=== PATIENT | female | born 1960 | race Caucasian/White ===

== ENCOUNTER → 2018-08-16 10:27 | Outpatient (CLI) | payer OTHER, SELFPAY ==
--- NOTE | 2018-08-16 | DI.MG.S_ITS ---
BILATERAL DIGITAL DIAGNOSTIC MAMMOGRAM 3D/2D: 08/16/2018 CLINICAL: Patient returns for 6 month follow up of right breast, due for bilateral exam. Comparison is made to exams dated: 04/24/2017 mammogram, 10/22/2016 mammogram, and 10/08/2016 mammogram - [facility]. The tissue of both breasts is heterogeneously dense. This may lower the sensitivity of mammography. There are a grouped fine punctate calcifications in the left breast at 6 o'clock middle depth. These are not significantly changed compared to prior studies. No other significant masses, calcifications, or other findings are seen in either breast. IMPRESSION: PROBABLY BENIGN The grouped fine punctate calcifications in the left breast are probably benign. A follow-up mammogram in 6 months is recommended. A follow-up mammogram in 6 months is recommended to demonstrate stability for greater than 2 years. This exam was interpreted at Station ID: [id number]. NOTE: For mammograms, a report in lay terms will be sent to the patient. Approximately 15% of breast malignancies will not be visualized mammographically. In the management of a palpable breast mass, a negative mammogram must not discourage biopsy of a clinically suspicious lesion. Electronically Signed By: Florenitno Holman M.D. [email or web address]/:08/16/2018 11:22:59 copy to: Rafy AQUINO MD letter sent: Followup Recommended ACR BI-RADS Category 3: Probably benign 3343F
== END ==
PROVIDERS: Family Provider Family Medicine; PCP Family Medicine
DX: R92.1 Mammographic calcification found on diagnostic imaging of breast (principal)
CPT/HCPCS: 77066; G0279

== ENCOUNTER → 2018-10-16 12:43 | Outpatient (CLI) | payer OTHER, SELFPAY ==
--- NOTE | 2018-10-16 12:46 | DI.RAD.S_ITS ---
PROCEDURE: XR ANKLE RT MIN 3V INDICATIONS: fell ankle went one way and leg different way TECHNIQUE: 3 views of the ankle were acquired. COMPARISON: None. FINDINGS: Bones: Moderately displaced distal fibular fracture. Soft tissues: No tibiotalar joint effusion. Achilles tendon appears normal. IMPRESSION: Distal fibular fracture. Dictated by: Portillo Mane M.D. on 10/16/2018 at 13:15 Approved by: Portillo Mane M.D. on 10/16/2018 at 13:15
--- NOTE | 2018-10-16 12:46 | DI.RAD.S_ITS ---
PROCEDURE: XR TIBIA FUBULA RT 2V INDICATIONS: fell-ankle went one way and leg went other way TECHNIQUE: 2 views of the tibia and fibula were acquired. COMPARISON: None. FINDINGS: Bones: Moderately displaced distal fibular fracture. Soft tissues: No suspicious soft tissue calcifications or masses. IMPRESSION: Distal fibular fracture. Dictated by: Portillo Mane M.D. on 10/16/2018 at 13:15 Approved by: Portillo Mane M.D. on 10/16/2018 at 13:15
== END ==
PROVIDERS: Family Provider Family Medicine; PCP Family Medicine; Visit Provider Physician Assistant
DX: S82.831A Other fracture of upper and lower end of right fibula, initial encounter for closed fracture (principal); M25.571 Pain in right ankle and joints of right foot; W19.XXXA Unspecified fall, initial encounter
CPT/HCPCS: 73590; 73610

== ENCOUNTER 2018-10-18 14:29 | Day surgery (SDC) | payer OTHER, SELFPAY ==
[2018-10-18] VITALS (21 sets, daily range): BP systolic 137–184; BP diastolic 82–115; PULSE 73–92; RESP 9–16; TEMP 36–36.8; O2SAT 92–100; BMI 26.6
--- NOTE | 2018-10-18 | DI.RAD.S_ITS ---
PROCEDURE: XR ANKLE RT MIN 3V INDICATIONS: ORIF RIGHT ANKLE TECHNIQUE: 3 intraoperative fluoroscopic views of the ankle were acquired. COMPARISON: [facility], CR, XR ANKLE RT MIN 3V, 10/16/2018, 13:06. FINDINGS: Intraoperative fluoroscopic images of right ankle shows internal fixation of distal fibular and lateral malleolus. Ankle alignment is anatomic. IMPRESSION: Fluoroscopy guidance was provided intraoperatively for ORIF of distal fibular shaft/lateral malleolus. Dictated by: Ean Kline M.D. on 10/18/2018 at 19:14 Approved by: Ean Kline M.D. on 10/18/2018 at 19:15
[2018-10-18 14:53] LABS: Add Manual Diff / Slide Review NO; Basophils Absolute Auto 100 /uL (0-100); Basophils Percent Auto 1.3 % (0-2); Eosinophils Absolute Auto 300 /uL (0-450); Eosinophils Percent Auto 5.9 % (2-4); Hematocrit 36.8 % (36-46); Hemoglobin 12.2 g/dL (12.0-16.0); Lymphocytes Absolute Auto 1400 /uL (1100-4500); Lymphocytes Percent Auto 26.8 % (25-40); Mean Corpuscular HGB Conc 33.2 % (30-36); Mean Corpuscular Hemoglobin 32.4 PG (26-34); Mean Corpuscular Volume 97.6 fL (80-100); Monocytes Absolute Auto 700 /uL (0-900); Monocytes Percent Auto 13.8 % (3-14); Neutrophils Absolute Auto 2700 /uL (1500-7000); Neutrophils Percent Auto 52.2 % (50-75); Platelet Count 270 X10^3/uL (150-400); Red Blood Cell Count 3.78 X10^6/uL (4.0-5.2); Red Cell Distribution Width 13.8 % (11.6-14.8); White Blood Cell Count 5.2 X10^3/uL (4.5-11.0)
[2018-10-18] MEDS: LACTATED RINGERS 1,000 ML 42 ML IV ×2 (15:10→18:18)
[2018-10-18] MEDS: ACETAMINOPHEN IV 1,000 MG/100 ML VIAL 400 MG IV (15:30)
[2018-10-18] MEDS: fentaNYL 100 MCG/2 ML INJ 50 MCG IV ×6 (15:31→17:49)
--- NOTE | 2018-10-18 16:03 | PM.PREOP ---
Pre-operative Note Interval Note History & Physical reviewed/Exam performed by Physician: Yes Changes to H&P: No
[2018-10-18] MEDS: SODIUM CHLORIDE 0.9% 1,000 ML, GENTAMICIN 80 MG IRR (16:27)
[2018-10-18] MEDS: BUPIVACAINE 0.5% W/ EPI (PF) VIAL 30 ML INJ (16:28)
[2018-10-18] MEDS: CEFAZOLIN 1 GM VIAL IV (16:29)
--- NOTE | 2018-10-18 17:09 | PM.OP.1 ---
Operative Date/Time/Diagnoses Date of procedure: 10/18/18 Time of procedure: 17:09 Pre-op diagnosis: Right lateral malleolus fracture of ankle Post-op diagnosis: same Procedure & Clinicians Procedure: ORIF of right lateral malleolus fracture Same procedure as scheduled: Yes Indications: 57-year-old female with a displaced right lateral malleolus fracture. It was felt that she would benefit from surgical reduction and stabilization. Risks and benefits of surgery discussed and appropriate consents were obtained. Click Yes if Unassisted: Yes Anesthesia Type: General Operative Notes Findings: None Closure Type: primary Specimen(s): none sent Prosthetic devices, grafts, tissues, transplants, or devices: Synthes small frag 1/3 tubular plate Estimated Blood Loss (mL): 5 Tourniquet time (min): 29 Procedure in detail: Patient brought to the operating room and intubated on the table. Attention was turned towards the well-marked right ankle. A time-out was performed. Preoperative antibiotics were given. A tourniquet was placed over the thigh. The leg was prepped and draped in the standard sterile fashion. The Esmarch was used to exsanguinate the limb and the tourniquet was inflated to 250 mm of mercury. A 10 cm longitudinal incision was made over the distal fibula. We bluntly dissected through the soft tissue. We isolated the superficial peroneal nerve which was quite distal. It actually traveled across the level of the fracture site. This was dissected out a little bit proximally and distally so we could mobilize it. The fracture site was exposed. We opened up the fracture site and cleared out the tissue and irrigated. The soft tissue was cleared at the level the fracture to get the edges exposed. We then used an alligator clamp to reduce and hold the fracture. We confirmed this under direct visualization and fluoroscopy and then placed a lag screw with standard AO technique. We then placed a 7 hole 1/3 tubular plate laterally. This was conformed to fit along the fibula and checked under x-ray. We then fixed this with cortical screws proximally and cancellous screws distally. We used live fluoro stress views to make sure there was no laxity of the interosseous ligament. Final x-rays were taken. The wound was again irrigated. The deep and superficial layers and the skin were closed. The tourniquet was let down for a total tourniquet time of 29 min. Marcaine was used for postoperative pain relief. A sterile dressing was placed. They were placed in a well-padded posterior splint with stirrups. They were extubated and brought to recovery room with no complications. Complications: none Condition: stable Disposition: PACU Plan for aftercare: Outpatient. Touchdown weight-bearing.
[2018-10-18] MEDS: HYDROMORPHONE 2 MG INJ 0.5 MG IV ×8 (17:17→18:21)
[2018-10-18] MEDS: LORazepam 2 MG/ML SYRINGE 0.5 MG IV (17:25)
[2018-10-18] MEDS: METOPROLOL TARTRATE 5 MG/5 ML INJ 1 MG IV ×4 (18:00→18:23)
--- NOTE | 2018-10-18 18:01 | SUR.PHASEI ---
Dr. Merchant at bedside. Dr. Merchant notified of pt blood pressure readings. Verbal order received for metoprolol 1mg q5min for up to 4 doses. Metoprolol given per MD order.
[2018-10-18] MEDS: HYDRALAZINE 20 MG/ML VIAL 10 MG IV (18:33)
--- NOTE | 2018-10-18 18:34 | SUR.PHASEI ---
ANESTHESIA AT BEDSIDE. VERBAL ORDER RECEIVED TO GIVE 10MG HYDRALAZINE IV NOW. GIVEN PER MD ORDER. ANESTHESIA COMPLETED BLOCK AT THIS TIME. PT REMAINED STABLE THROUGHOUT BLOCK, RESTING IN BED WITH EYES CLOSED. EASILY AROUSABLE TO VOICE WHEN SPOKEN TO. PT REPORTS SURGICAL FOOT FEELS BETTER. PT RATING PAIN 5/10 AT THIS TIME.
--- NOTE | 2018-10-18 18:50 | PM.PNPO.1 ---
Exam Vital Signs (past 8 hours): - 10/18/18 15:04 10/18/18 17:07 10/18/18 17:12 Temperature 98.3 F 97.4 F L Pulse Rate 78 92 H 85 Respiratory Rate 16 12 12 Blood Pressure 137/82 148/95 H 153/101 H Pulse Oximetry 100 97 95 10/18/18 17:17 10/18/18 17:22 10/18/18 17:27 Temperature 97.6 F Pulse Rate 82 85 83 Respiratory Rate 12 9 L 9 L Blood Pressure 174/98 H 182/96 H 170/102 H Pulse Oximetry 95 92 94 10/18/18 17:32 10/18/18 17:37 10/18/18 17:47 Temperature 97.3 F L Pulse Rate 78 77 75 Respiratory Rate 9 L 11 L 12 Blood Pressure 163/103 H 168/105 H 173/106 H Pulse Oximetry 96 92 93 10/18/18 17:52 10/18/18 17:57 10/18/18 18:07 Temperature 97.5 F L 96.8 F L Pulse Rate 74 76 74 Respiratory Rate 12 11 L 11 L Blood Pressure 170/100 H 184/109 H 182/113 H Pulse Oximetry 92 95 95 10/18/18 18:12 10/18/18 18:19 10/18/18 18:27 Temperature Pulse Rate 74 73 76 Respiratory Rate 11 L 9 L 10 L Blood Pressure 172/115 H 167/106 H 176/110 H Pulse Oximetry 96 95 97 10/18/18 18:37 10/18/18 18:43 10/18/18 18:48 Temperature 97.7 F 97.3 F L Pulse Rate 79 78 78 Respiratory Rate 11 L 12 11 L Blood Pressure 160/93 H 148/99 H 161/96 H Pulse Oximetry 98 97 98 Oxygen Delivery Method Room Air Objective Labs Result Diagrams: 10/18/18 14:37 Labs: Laboratory Results - last 24 hr 10/18/18 14:37 WBC 5.2 RBC 3.78 L Hgb 12.2 Hct 36.8 MCV 97.6 MCH 32.4 MCHC 33.2 RDW 13.8 Plt Count 270 Neut % (Auto) 52.2 Lymph % (Auto) 26.8 [place] % (Auto) 13.8 Eos % (Auto) 5.9 H Baso % (Auto) 1.3 Neut # (Auto) 2700 Lymph # (Auto) 1400 [place] # (Auto) 700 Eos # (Auto) 300 Baso # (Auto) 100 Assessment & Plan Post-op Postoperative Procedures Operation Date: 10/18/18 15:30 Actual Procedures Side Surgeon p ORIF Ankle Fracture Right Karan Gallagher MD Postoperative day: 0 Postoperative status: marginal pain control Postoperative status narrative: Complaining of burning pain at op site. Postoperative plan narrative: Pop block with 0.5% Marcaine. US guidance. Nerve stimulator. Chloraprep lat to nerve above knee. #20 needle to nerve. Twitch at 1.5, 2hz. 15cc 0.5% Marcaine with 1/200,00 epi. Needle advance medially to second set of twitches, additional 15cc Marcaine with [id number] epi. Good relief of pain. Cautioned on using right leg for 24 hr.
[2018-10-18] MEDS: ONDANSETRON 4 MG/2 ML INJ IV (19:07)
--- NOTE | 2018-10-18 19:37 | SUR.PHASEII ---
pt c/o nausea shortly after arriving to phase II. pt given quease ease and iv zofran per verbal order received from Dr. Merchant. pt stated felt better after iv zofran given. While pt getting dressed, pt c/o nausea with one eposide of emesis (clear fluid). After emesis, pt stated she felt better. pt transported to car in stable condition.
== END 2018-10-18 19:40 | disposition home or self-care (01) ==
PROVIDERS: Family Provider Family Medicine; PCP Family Medicine; Visit Provider Orthopaedic Surgery
PROC: 0SSF04Z Reposition Right Ankle Joint with Internal Fixation Device, Open Approach (ICD-10-PCS; CPT 27792; principal; 2018-10-18 15:30)
DX: S82.61XA Displaced fracture of lateral malleolus of right fibula, initial encounter for closed fracture (principal); W18.30XA Fall on same level, unspecified, initial encounter; G89.18 Other acute postprocedural pain
CPT/HCPCS: 27792; 36415; 64450; 73610; 76000; 85025; J0131; J0360; J0690; J1100; J1170; J2060; J2405; J2704; J3010

== ENCOUNTER → 2018-12-30 10:16 | Outpatient (CLI) | payer OTHER, SELFPAY ==
--- NOTE | 2018-12-30 | DI.US.S_ITS ---
PROCEDURE: US PERIPH VENOUS LOW EXTREM RT INDICATIONS: RIGHT FIBULA FRACTURE TECHNIQUE: Real-time imaging, as well as color and pulse Doppler interrogation, were performed of the lower extremity deep veins from the inguinal ligament to the popliteal fossa. COMPARISON: None. FINDINGS: The common femoral, femoral and popliteal veins are normally compressible, and free of intraluminal thrombus. Color and pulse Doppler demonstrate normal phasic intraluminal flow. There is normal augmentation response to distal compression maneuver. IMPRESSION: No right lower extremity DVT. Dictated by: Taylor Roy M.D. on 12/30/2018 at 12:21 Approved by: Taylor Roy M.D. on 12/30/2018 at 12:22
== END ==
PROVIDERS: Family Provider Family Medicine; Visit Provider Orthopaedic Surgery
DX: S82.61XA Displaced fracture of lateral malleolus of right fibula, initial encounter for closed fracture (principal)
CPT/HCPCS: 93971

== ENCOUNTER → 2019-02-23 13:57 | Outpatient (CLI) | payer OTHER, SELFPAY ==
--- NOTE | 2019-02-23 | DI.MG.S_ITS ---
UNILATERAL LEFT DIGITAL DIAGNOSTIC MAMMOGRAM 3D/2D: 02/23/2019 CLINICAL: Patient returns for a 6 month follow up of the left breast. Comparison is made to exams dated: 08/16/2018 mammogram, 04/24/2017 mammogram, 10/22/2016 mammogram, and 10/08/2016 mammogram - [facility]. The tissue of left breast is heterogeneously dense. This may lower the sensitivity of mammography. There are benign grouped fine heterogeneous calcifications in the left breast at 6 o'clock middle depth. These are not significantly changed compared to the prior studies. No other significant masses or calcifications are seen in the breast. IMPRESSION: There is no mammographic evidence of malignancy. Return to annual mammogram screening schedule is recommended. This exam was interpreted at Station ID: [id number]. NOTE: For mammograms, a report in lay terms will be sent to the patient. Approximately 15% of breast malignancies will not be visualized mammographically. In the management of a palpable breast mass, a negative mammogram must not discourage biopsy of a clinically suspicious lesion. Electronically Signed By: Florentino mcbride/:02/23/2019 14:40:17 copy to: Rafy AQUINO MD letter sent: Normal Exam ACR BI-RADS Category 2: Benign Finding(s) 3342F
== END ==
PROVIDERS: Family Provider Family Medicine
DX: R92.8 Other abnormal and inconclusive findings on diagnostic imaging of breast (principal)
CPT/HCPCS: 77065; G0279

== ENCOUNTER → 2020-01-23 09:50 | Outpatient (CLI) | payer OTHER, SELFPAY ==
[2020-01-23 10:18] LABS: Add Manual Diff / Slide Review NO; Basophils Absolute Auto 0 /uL (0-100); Eosinophils Absolute Auto 400 /uL (0-450); Hematocrit 39.2 % (36-46); Hemoglobin 13.1 g/dL (12.0-16.0); Lymphocytes Absolute Auto 1200 /uL (1100-4500); Mean Corpuscular HGB Conc 33.5 % (30-36); Mean Corpuscular Hemoglobin 31.8 PG (26-34); Monocytes Absolute Auto 600 /uL (0-900); Monocytes Percent Auto 11.9 % (3-14); Neutrophils Absolute Auto 2400 /uL (1500-7000); Neutrophils Percent Auto 52.1 % (50-75); Platelet Count 252 X10^3/uL (150-400); Red Blood Cell Count 4.12 X10^6/uL (4.0-5.2); Red Cell Distribution Width 12.9 % (11.6-14.8); White Blood Cell Count 4.7 X10^3/uL (4.5-11.0)
[2020-01-23 10:36] LABS: Alanine Aminotransferase 21 IU/L (<35); Albumin 4.5 g/dL (3.5-5.0); Albumin Globulin Ratio 1.4 (1.0-2.8); Alkaline Phosphatase 75 U/L (38-126); Aspartate Aminotransferase 33 IU/L (14-36); BUN Creatinine Ratio 19.7 (6-22); Bilirubin Total 0.3 mg/dL (0.2-1.3); Blood Urea Nitrogen 13 mg/dL (7-17); Calcium 9.1 mg/dL (8.4-10.2); Carbon Dioxide 26 mmol/L (22-32); Chloride 100 mmol/L (98-107); Cholesterol 247 mg/dL (140-199); Estimated Glomerular Filt Rate > 60.0 mL/min (>60); Globulin 3.3 g/dL (1.7-4.1); Glucose 91 mg/dL (70-100); HDL Cholesterol 76 mg/dL (40-60); HEMOLYSIS < 15 (0-50); LDL Cholesterol Calculated 107 mg/dL (<100); Potassium 4.3 mmol/L (3.4-5.1); Sodium 137 mmol/L (137-145); Total Protein 7.8 g/dL (6.3-8.2); Triglycerides 322 mg/dL (35-150)
== END ==
PROVIDERS: Family Provider Family Medicine; PCP Family Medicine; Referring Provider Family Medicine; Visit Provider Family Medicine
DX: Z00.00 Encounter for general adult medical examination without abnormal findings (principal)
CPT/HCPCS: 36415; 80053; 80061; 83036; 84443; 85025

== ENCOUNTER → 2021-09-10 07:52 | Outpatient (CLI) | payer OTHER, SELFPAY ==
--- NOTE | 2021-09-10 | DI.MG.S_ITS ---
BILATERAL DIGITAL SCREENING MAMMOGRAM 3D/2D WITH CAD: 09/10/2021 CLINICAL: Routine screening. Comparison is made to exams dated: 08/16/2018 mammogram, 10/08/2016 mammogram, and 02/23/2019 mammogram - [facility]. The tissue of both breasts is heterogeneously dense. This may lower the sensitivity of mammography. Current study was also evaluated with a Computer Aided Detection (CAD) system. There are benign calcifications in the left breast. No significant masses, calcifications, or other findings are seen in either breast. There has been no significant interval change. IMPRESSION: BENIGN There is no mammographic evidence of malignancy. A 1 year screening mammogram is recommended. This exam was interpreted at Station ID: [id number]. NOTE: For mammograms, a report in lay terms will be sent to the patient. Approximately 15% of breast malignancies will not be visualized mammographically. In the management of a palpable breast mass, a negative mammogram must not discourage biopsy of a clinically suspicious lesion. Electronically Signed By: Lucas Escobedo M.D., jr/simona:09/10/2021 08:28:27 copy to: Rafy AQUINO MD letter sent: Normal Exam ACR BI-RADS Category 2: Benign Finding(s) 3342F
== END ==
PROVIDERS: Family Provider Family Medicine; Referring Provider Family Medicine; Visit Provider Family Medicine
DX: Z12.31 Encounter for screening mammogram for malignant neoplasm of breast (principal)
CPT/HCPCS: 77063; 77067

== ENCOUNTER → 2022-12-29 08:31 | Outpatient (CLI) | payer OTHER, SELFPAY ==
--- NOTE | 2022-12-29 | DI.MG.S_ITS ---
BILATERAL DIGITAL SCREENING MAMMOGRAM 3D/2D WITH CAD: 12/29/2022 CLINICAL: Routine screening. Comparison is made to exams dated: 09/10/2021 mammogram, 08/16/2018 mammogram, 10/08/2016 mammogram, and 02/23/2019 mammogram - [facility]. Both breasts are heterogeneously dense, which may obscure small masses (category c / 51-75% glandular tissue). Current study was also evaluated with a Computer Aided Detection (CAD) system. There are benign calcifications in both breasts. No significant masses, calcifications, or other findings are seen in either breast. There has been no significant interval change. IMPRESSION: BENIGN There is no mammographic evidence of malignancy. A 1 year screening mammogram is recommended. Based on the Tyrer Cuzick model (a risk assessment model) the patient's lifetime risk is 8.8% and her 10 year risk is 3.8%. According to the ACR, ACS, and NCCN guidelines, an annual breast MRI exam along with mammogram is recommended if the patient's lifetime risk is 20% or greater. This exam was interpreted at Station ID: [id number]. NOTE: For mammograms, a report in lay terms will be sent to the patient. Approximately 15% of breast malignancies will not be visualized mammographically. In the management of a palpable breast mass, a negative mammogram must not discourage biopsy of a clinically suspicious lesion. Electronically Signed By: Stanislaw loya/simona:12/29/2022 09:54:20 copy to: Rafy AQUINO MD letter sent: Normal Exam ACR BI-RADS Category 2: Benign Finding(s) 3342F
== END ==
PROVIDERS: Family Provider Family Medicine; PCP Family Medicine; Referring Provider Family Medicine; Visit Provider Family Medicine
DX: Z12.31 Encounter for screening mammogram for malignant neoplasm of breast (principal)
CPT/HCPCS: 77063; 77067

== ENCOUNTER → 2023-11-02 10:38 | Outpatient (CLI) | payer OTHER, SELFPAY | PROVIDERS: Family Provider Family Medicine; PCP Family Medicine; Visit Provider Physician Assistant Surgical | DX: N39.0 Urinary tract infection, site not specified (principal) | CPT/HCPCS: 87077; 87086; 87186 ==

== ENCOUNTER → 2024-02-05 09:08 | Outpatient (CLI) | payer OTHER, SELFPAY ==
--- NOTE | 2024-02-05 09:09 | DI.MG.S_ITS ---
BILATERAL DIGITAL SCREENING MAMMOGRAM 3D/2D WITH CAD: 02/05/2024 CLINICAL: Routine screening. Comparison is made to exams dated: 12/29/2022 mammogram, 09/10/2021 mammogram, 08/16/2018 mammogram, and 02/23/2019 mammogram - [facility]. Both breasts are heterogeneously dense, which may obscure small masses (category c / 51-75% glandular tissue). Current study was also evaluated with a Computer Aided Detection (CAD) system. There are benign calcifications in both breasts. No significant masses, calcifications, or other findings are seen in either breast. There has been no significant interval change. IMPRESSION: BENIGN There is no mammographic evidence of malignancy. A 1 year screening mammogram is recommended. Based on the Tyrer Cuzick model (a risk assessment model) the patient's lifetime risk is 8.5% and her 10 year risk is 3.8%. According to the ACR, ACS, and NCCN guidelines, an annual breast MRI exam along with mammogram is recommended if the patient's lifetime risk is 20% or greater. This exam was interpreted at Station ID: [id number]. NOTE: For mammograms, a report in lay terms will be sent to the patient. Approximately 15% of breast malignancies will not be visualized mammographically. In the management of a palpable breast mass, a negative mammogram must not discourage biopsy of a clinically suspicious lesion. Electronically Signed By: Stanislaw loya/simona:02/05/2024 15:58:30 copy to: Rafy AQUINO MD letter sent: Normal Exam ACR BI-RADS Category 2: Benign Finding(s) 3342F
== END ==
PROVIDERS: Family Provider Family Medicine; PCP Family Medicine; Referring Provider Family Medicine; Visit Provider Family Medicine
DX: Z12.31 Encounter for screening mammogram for malignant neoplasm of breast (principal); R92.333 Mammographic heterogeneous density, bilateral breasts
CPT/HCPCS: 77063; 77067

== ENCOUNTER → 2025-01-06 08:11 | Outpatient (CLI) | payer OTHER, SELFPAY ==
--- NOTE | 2025-01-06 08:12 | DI.US.S_ITS ---
PROCEDURE: US ABDOMEN LIMITED INDICATIONS: Elevated liver enzymes TECHNIQUE: Real-time scanning of abdominal and retroperitoneal organs, with image documentation. COMPARISON: None. FINDINGS: Liver: Moderate diffuse increased echogenicity of the liver commonly hepatic steatosis and or intrinsic hepatic disease. Possible microlobulated contour of the liver versus artifact may be an indication of early findings of cirrhotic change. No ultrasound evidence of focal hepatic lesion. Gallbladder: Gallbladder is nondistended. No ultrasound evidence of gallbladder wall thickening or pericholecystic fluid. No gallstones. Biliary ducts: Intrahepatic bile ducts are non-dilated. Extrahepatic bile duct caliber measures 5 mm. Normal is 6-7 mm or less in diameter. Pancreas: Visualized portions of the pancreas are sonographically normal. No free abdominal fluid. IMPRESSION: Hepatic steatosis or intrinsic hepatic disease as discussed above. Dictated by: Facundo Cross M.D. on 01/06/2025 at 10:53 Approved by: Facundo Cross M.D. on 01/06/2025 at 11:00
== END ==
PROVIDERS: Family Provider Family Medicine; PCP Family Medicine; Referring Provider Family Medicine; Visit Provider Family Medicine
DX: R74.8 Abnormal levels of other serum enzymes (principal)
CPT/HCPCS: 76705

== ENCOUNTER → 2025-03-15 07:58 | Outpatient (CLI) | payer OTHER, SELFPAY ==
--- NOTE | 2025-03-15 08:00 | DI.MG.S_ITS ---
MM screening mammo BI: 03/15/2025. BI-RADS: 0 CLINICAL: 64-year old female for bilateral screening mammogram. Tyrer-Cuzick lifetime risk of 8.5%. No personal or first-degree family history of breast cancer. PRIOR EXAMS 02/05/2024, 12/29/2022, 09/10/2021, 02/23/2019. MAMMOGRAPHY TECHNIQUE: 2D and 3D (tomosynthesis) digital mammographic views obtained, with additional images as needed for full coverage. Current study was also evaluated with a Computer Aided Detection (CAD) system. DENSITY C. The breasts are heterogeneously dense, which may obscure small masses. MAMMOGRAPHY FINDINGS Right: No suspicious mass, asymmetry, microcalcification, or other abnormality seen. Left: Lower at 5:30, Anterior depth: Calcifications needing additional imaging evaluation. IMPRESSION: Right * No evidence of malignancy. Left (Calcification): Lower at 5:30, Anterior depth * Incomplete - calcification needing additional imaging evaluation. RECOMMENDATIONS Left: Lower at 5:30, Anterior depth * Further evaluation with diagnostic mammography. OVERALL ASSESSMENT CATEGORY BI-RADS-0: Incomplete - Need Additional Imaging Evaluation. ELECTRONICALLY SIGNED: Ruy Huang M.D. on 03/15/2025 at 09:20:36 AM PT Interpreting Station ID: [id number]
== END ==
LOC: MAMMO 08:00
PROVIDERS: Family Provider Family Medicine; PCP Family Medicine; Referring Provider Family Medicine; Visit Provider Family Medicine
DX: Z12.31 Encounter for screening mammogram for malignant neoplasm of breast (principal); R92.333 Mammographic heterogeneous density, bilateral breasts
CPT/HCPCS: 77063; 77067

== ENCOUNTER 2025-09-09 10:41 | Emergency (ER) | payer OTHER, SELFPAY ==
[2025-09-09 10:47] VITALS: BP 150/78; PULSE 105; RESP 18; TEMP 36.6; O2SAT 96; BMI 28.3
--- NOTE | 2025-09-09 10:59 | ED.SKABFB ---
HPI - Skin/Abscess/Foreign Bdy General Chief complaint: Skin/Abscess/Foreign Body Stated complaint: Earring went inside pierced ear under the skin Time Seen by Provider: 09/09/25 10:43 Source: patient Mode of arrival: Ambulatory Limitations: no limitations History of Present Illness HPI narrative: 64-year-old female presents with right ear in dislodgement unable to retrieve it it has been in there for 2 weeks now. It is red and swollen at this time and painful despite multiple attempts to remove. Other than what is stated 14 point review of system is negative. Related Data Home Medications ?Medication ?Instructions ?Recorded ?Confirmed duloxetine 30 mg capsule,delayed 90 mg PO DAILY 11/02/23 11/02/23 release estradiol 0.5 mg tablet mg PO 11/02/23 11/02/23 gabapentin 400 mg capsule mg PO 11/02/23 11/02/23 hydrocodone 5 mg-acetaminophen 325 1 tab PO Q6H PRN moderate pain 11/02/23 11/02/23 mg tablet scopolamine base 1 mg over 3 days 1 patch transdermal Q3D PRN 11/02/23 11/02/23 transdermal patch Previous Rx's ?Medication ?Instructions ?Recorded trazodone 100 mg tablet 200 mg (2 x 100 mg) PO HS #180 tabs 04/10/20 albuterol sulfate 90 mcg/actuation 2 puff inhalation Q4-6H PRN 02/22/23 aerosol inhaler shortness of breath or wheezing #6.7 grams fluconazole 150 mg tablet 150 mg PO DAILY PRN yeast, itching 11/02/23 1 dose #1 tab sulfamethoxazole 800 1 tab PO Q12H #14 tabs 09/09/25 mg-trimethoprim 160 mg tablet (Bactrim DS) Allergies Allergy/AdvReac Type Severity Reaction Status Date / Time clindamycin Allergy Severe swelling Verified 11/02/23 10:25 Review of Systems Review of Systems ROS Unobtainable: All systems reviewed & are unremarkable except as noted in HPI and below Patient History Medical History (Updated 09/09/25 @ 11:22 by Bentley Huggins, ) Well adult exam Fracture of fibula Pneumonia Chronic back pain (Unknown) Depression (1987) Anxiety (1987) Chickenpox (1966) Surgical History History of hysterectomy Status post hysterectomy Family History Brother Cancer Father No problems noted. Mother No problems noted. Social History household members: spouse Smoking Status: Never smoker Smoking Status: Never smoker Exam Narrative Exam Narrative: GENERAL: [64] year old patient appears stated age. Well-developed patient, in mild distress. HEAD: Atraumatic. Normocephalic. EYES: Pupils equal round and reactive. Extraocular motions intact. No scleral icterus. No injection or drainage. BACK: Nontender without deformity or crepitance. No flank tenderness. NEURO: AOx3. SKIN: No rash or erythema of visible areas Initial Vital Signs Initial Vital Signs: Vital Signs Temperature 97.8 F 09/09/25 10:47 Pulse Rate 105 H 09/09/25 10:47 Respiratory Rate 18 09/09/25 10:47 Blood Pressure 150/78 H 09/09/25 10:47 Pulse Oximetry 96 09/09/25 10:47 Oxygen Delivery Method Room Air 09/09/25 10:47 Procedures Foreign Body EAR Time of procedure: : Location: ear canal (R) If Insect Suspected: ear canal instilled with Lidocaine Foreign Body Removed: yes Foreign Body Removal Technique: forceps Tympanic Membrane Intact Post Procedure: Yes Patient Tolerated Procedure: Well and No complications Complications: none Course Vital Signs Vital signs: Vital Signs - 8 hr 09/09/25 10:47 Temperature 97.8 F Pulse Rate 105 H Respiratory Rate 18 Blood Pressure 150/78 H Pulse Oximetry 96 Oxygen Delivery Method Room Air MDM - Skin/Abscess/Foreign Bdy MDM Narrative Medical decision making narrative: All lab work, vital signs, nurse triage note, medication list, previous ER visits, and all imaging studies reviewed. Earring removed with no difficulty we will place on Bactrim DS this time. Differential diagnosis foreign body cellulitis MRSA Discharge Plan Departure Patient Disposition: Home Clinical Impression: Embedded earring, Cellulitis Activity Restrictions/Additional Instructions: Return with new or worsening symptoms. Take medicines as directed. Prescriptions: New sulfamethoxazole-trimethoprim [Bactrim DS] 800-160 mg tablet 1 tab PO Q12H Qty: 14 0RF No Action duloxetine 30 mg capsule,delayed release(DR/EC) 90 mg PO DAILY gabapentin 400 mg capsule PO estradiol 0.5 mg tablet PO scopolamine base 1 mg over 3 days patch 3 day 1 patch transdermal Q3D PRN hydrocodone-acetaminophen 5-325 mg tablet 1 tab PO Q6H PRN (Reason: moderate pain) fluconazole 150 mg tablet 150 mg PO DAILY PRN (Reason: yeast, itching) Qty: 1 0RF Rx Instructions: administer on day 1 of therapy albuterol sulfate 90 mcg/actuation HFA aerosol inhaler 2 puff inhalation Q4-6H PRN (Reason: shortness of breath or wheezing) Qty: 6.7 0RF trazodone 100 mg tablet 200 mg PO HS Qty: 180 2RF Referrals: Rubina Trotter DO [Primary Care Provider, Family Practice] Stand Alone Forms: Patient Portal/API
[2025-09-09] MEDS: LIDOCAINE 1% W/EPI 10ML 4 ML INJ (11:10)
[2025-09-09] MEDS: TRIMETH/SULFA 160/800 (DS) TABLET 1 TAB PO (11:25)
[2025-09-09 11:39] VITALS: BP 150/90; PULSE 90; RESP 16; O2SAT 99
== END 2025-09-09 11:42 | disposition home or self-care (01) ==
PROVIDERS: Emergency Provider Family Medicine; Family Provider Family Medicine; PCP Family Medicine
DX: H60.11 Cellulitis of right external ear (principal); M79.5 Residual foreign body in soft tissue; W45.8XXA Other foreign body or object entering through skin, initial encounter
CPT/HCPCS: 96372; 99283